=== PATIENT | female | born 1975 | race Caucasian/White ===

== ENCOUNTER 2019-01-18 19:37 | Emergency (ER) | payer MEDICAID ==
[~2019-01-18] VITALS: Ht 157.5 cm; Wt 68.2 kg
[~2019-01-18 19:37] MED LIST: NO MEDS
[2019-01-18 21:00] VITALS: BP 110/72
[2019-01-18] MEDS ORDERED: KETOROLAC TROMETHAMINE 30 MG/ML VIAL IM ONE (21:45)
== END 2019-01-18 21:57 | disposition home or self-care (01) ==
LOC: EMS 19:38
DX: S46.912A Strain of unspecified muscle, fascia and tendon at shoulder and upper arm level, left arm, initial encounter (principal); M54.10 Radiculopathy, site unspecified; F41.9 Anxiety disorder, unspecified; X50.9XXA Other and unspecified overexertion or strenuous movements or postures, initial encounter; Y93.89 Activity, other specified; Y92.89 Other specified places as the place of occurrence of the external cause; Y99.0 Civilian activity done for income or pay
CPT/HCPCS: 73030; 96372; 99283; J1885

== ENCOUNTER 2021-04-06 15:50 | Emergency (ER) | payer MEDICAID ==
[~2021-04-06] VITALS: Ht 154.9 cm; Wt 72.7 kg
[2021-04-06] MEDS ORDERED: ONDANSETRON HCL 4 MG/2 ML VIAL IVP ONE (19:00)
[2021-04-06] MEDS ORDERED: SODIUM CHLORIDE 0.9% 1,000 ML IV ONE (19:00)
[2021-04-06] MEDS ORDERED: FAMOTIDINE 10 MG/ML 2 ML VIAL IVP ONE (19:00)
[2021-04-06] MEDS ORDERED: KETOROLAC TROMETHAMINE 30 MG/ML VIAL IVP ONE (19:00)
[2021-04-06] MEDS ORDERED: MAG HYDROX/AL HYDROX/SIMETH 30 ML SUSP UDCUP PO ONE (19:00)
[2021-04-06] MEDS ORDERED: ACETAMINOPHEN 500 MG TABLET PO ONE (19:00)
[2021-04-06 19:23] LABS: BASOPHILS % (AUTO) 0.9 % (0.0-2.0); EOSINOPHILS % (AUTO) 0.2 % (1.0-6.0); HEMOGLOBIN 15.3 g/dL (12.0-16.0); LYMPHOCYTES # (AUTO) 1.1 K/uL (1.0-4.8); LYMPHOCYTES % (AUTO) 24.6 % (22.0-44.0); MEAN CORPUSCULAR HEMOGLOBIN 34.1 pg (26.0-34.0); MEAN CORPUSCULAR HGB CONC 34.8 G/dL (31.0-37.0); MEAN CORPUSCULAR VOLUME 98 fL (80-100); MONOCYTES # (AUTO) 0.3 K/uL (0.1-1.0); NEUTROPHILS # (AUTO) 3.1 K/uL (1.8-7.7); NEUTROPHILS % (AUTO) 67.3 % (40.0-70.0); PLATELET COUNT (AUTO) 174 K/uL (150-450); RED BLOOD CELL COUNT(AUTO) 4.49 MIL/uL (4.00-5.20); RED CELL DISTRIBUTION WIDTH 12.5 % (11.5-14.5)
[2021-04-06 19:42] LABS: ANION GAP 10 mmol/L (8-16); CALCIUM, TOTAL 9.1 mg/dL (8.8-10.5); CARBON DIOXIDE 28 mmol/L (22-29); CHLORIDE 100 mmol/L (98-107); CREATININE 0.84 mg/dL (0.60-1.30); GLOMERULAR FILTR. RATE CALC > 60 mL/min (>60); GLUCOSE,RANDOM 93 mg/dL (70-110); POTASSIUM 3.7 mmol/L (3.5-5.1); SODIUM SERUM 138 mmol/L (136-145); UREA NITROGEN, BLOOD 11 mg/dL (7-18)
[2021-04-06 19:48] LABS: LACTIC ACID 0.6 mmol/L (0.4-2.0)
[2021-04-06 19:58] LABS: B-TYPE NATRIURETIC PEPTIDE < 0 pg/mL (0-100)
[2021-04-06 20:07] LABS: ALANINE AMINOTRANSFERASE 28 U/L (12-78); ALKALINE PHOSPHATASE 78 U/L (46-116); ASPARTATE AMINOTRANSFERASE 25 U/L (15-37); BILIRUBIN,TOTAL 0.3 mg/dL (0.1-1.0); CREATINE KINASE, TOTAL ONLY 93 U/L (26-192); HCG,QUANTITATIVE 1 mIU/mL (0-6); LIPASE 128 U/L (73-393); TOTAL PROTEIN, SERUM 9.4 g/dL (6.4-8.2)
[2021-04-06 20:26] LABS: COVID AG,FIA SOURCE NASOPHARYNGEAL
[2021-04-06 20:54] LABS: INFLUENZA TYPE A NEGATIVE FOR TYPE A (NEGATIVE); INFLUENZA TYPE B NEGATIVE FOR TYPE B (NEGATIVE)
[2021-04-06 22:02] LABS: APPEARANCE,URINE CLEAR (CLEAR); GLUCOSE, URINE (UA) NEGATIVE (NEGATIVE); KETONES,URINE 40 mg/dL (NEGATIVE); LEUKOCYTE ESTERASE ,URINE NEGATIVE (NEGATIVE); NITRATE,URINE NEGATIVE (NEGATIVE); OCCULT BLOOD,URINE NEGATIVE (NEGATIVE); PROTEIN,URINE TRACE (NEGATIVE); UROBILINOGEN,URINE 0.2 mg/dL (<=1.0)
[2021-04-06 22:16] LABS: BILIRUBIN,URINE PRELIM. POSITIVE (NEGATIVE)
[2021-04-06] MEDS ORDERED: IOHEXOL 350 MG/ML 100 ML VIAL ONE (22:43)
[2021-04-06] MEDS ORDERED: SODIUM CHLORIDE 0.9% 100 ML ONE (22:43)
[2021-04-06] MEDS ORDERED: AZITHROMYCIN 500 MG TABLET PO ONE (22:45)
[2021-04-07] MEDS ORDERED: AZIT-84 PO (00:24)
[2021-04-07 01:30] VITALS: BP 117/69
[2021-04-08] MEDS ORDERED: ONDA-104 PO (16:44)
== END 2021-04-07 03:53 | disposition home or self-care (01) ==
LOC: EMS 16:00
DX: U07.1 COVID-19 (principal); J12.82 Pneumonia due to coronavirus disease 2019; F41.9 Anxiety disorder, unspecified
CPT/HCPCS: 36415; 71045; 74177; 80053; 81003; 82550; 83605; 83690; 83880; 84484; 84702; 85025; 87040; 87426; 87804; 93005; 96360; 99285; J1885; J2405; J3490; J7030; J7050; Q9967; U0003

== ENCOUNTER 2021-04-08 11:17 | Emergency (ER) | payer MEDICAID ==
[~2021-04-08] VITALS: Ht 154.9 cm; Wt 70.5 kg
[~2021-04-08 11:17] MED LIST changes: +AZIT-84 PO; -NO MEDS
[2021-04-08 12:11] VITALS: BP 108/74
[2021-04-08 14:57] LABS: BASOPHILS % (AUTO) 0.4 % (0.0-2.0); EOSINOPHILS % (AUTO) 0.5 % (1.0-6.0); HEMATOCRIT 41.6 % (36-46); HEMOGLOBIN 14.4 g/dL (12.0-16.0); LYMPHOCYTES # (AUTO) 1.1 K/uL (1.0-4.8); LYMPHOCYTES % (AUTO) 17.6 % (22.0-44.0); MEAN CORPUSCULAR HEMOGLOBIN 33.9 pg (26.0-34.0); MEAN CORPUSCULAR HGB CONC 34.6 G/dL (31.0-37.0); MEAN CORPUSCULAR VOLUME 98 fL (80-100); MONOCYTES # (AUTO) 0.3 K/uL (0.1-1.0); MONOCYTES % (AUTO) 5.6 % (2.0-9.0); NEUTROPHILS # (AUTO) 4.7 K/uL (1.8-7.7); NEUTROPHILS % (AUTO) 75.9 % (40.0-70.0); PLATELET COUNT (AUTO) 176 K/uL (150-450); RED BLOOD CELL COUNT(AUTO) 4.24 MIL/uL (4.00-5.20); RED CELL DISTRIBUTION WIDTH 12.4 % (11.5-14.5)
[2021-04-08 15:15] LABS: ANION GAP 12 mmol/L (8-16); CALCIUM, TOTAL 8.6 mg/dL (8.8-10.5); CARBON DIOXIDE 27 mmol/L (22-29); CHLORIDE 103 mmol/L (98-107); CREATININE 0.73 mg/dL (0.60-1.30); GLOMERULAR FILTR. RATE CALC > 60 mL/min (>60); GLUCOSE,RANDOM 85 mg/dL (70-110); POTASSIUM 3.9 mmol/L (3.5-5.1); SODIUM SERUM 142 mmol/L (136-145); UREA NITROGEN, BLOOD 10 mg/dL (7-18)
[2021-04-08 15:28] LABS: ALANINE AMINOTRANSFERASE 40 U/L (12-78); ALKALINE PHOSPHATASE 75 U/L (46-116); ASPARTATE AMINOTRANSFERASE 32 U/L (15-37); BILIRUBIN,TOTAL 0.3 mg/dL (0.1-1.0); HCG,QUANTITATIVE < 1 mIU/mL (0-6); TOTAL PROTEIN, SERUM 8.5 g/dL (6.4-8.2)
[2021-04-08 15:51] LABS: ALBUMIN 3.9 g/dL (3.4-5.0); LIPASE 111 U/L (73-393)
[2021-04-08] MEDS ORDERED: ONDA-104 PO (16:44)
== END 2021-04-08 18:25 | disposition home or self-care (01) ==
LOC: EMS 11:17
DX: R19.7 Diarrhea, unspecified (principal); R10.84 Generalized abdominal pain; J02.9 Acute pharyngitis, unspecified; R05.9 Cough, unspecified; Z20.822 Contact with and (suspected) exposure to COVID-19
CPT/HCPCS: 80053; 83690; 84702; 85025; 99283

== ENCOUNTER 2024-04-04 10:08 | Emergency (ER) | payer MEDICAID ==
[~2024-04-04] VITALS: Ht 157.5 cm; Wt 77.0 kg
[~2024-04-04 10:08] MED LIST changes: +AZIT-164 PO; -AZIT-84 PO; +ONDA-104 PO
[2024-04-04 10:24] VITALS: TEMP 98.4
[2024-04-04] MEDS: BACLOFEN 10 MG TABLET PO ONE (12:25)
[2024-04-04] MEDS: LIDOCAINE 5% TRANSDERMAL PATCH TD ONE (12:26)
[2024-04-04] MEDS ORDERED: BACL10TA PO (12:29)
[2024-04-04 13:13] VITALS: BP 131/85; PULSE 76; RESP 19; O2SAT 97
== END 2024-04-04 13:15 | disposition home or self-care (01) ==
LOC: EMS 10:08
DX: M25.512 Pain in left shoulder (principal); Z98.51 Tubal ligation status
CPT/HCPCS: 99283

== ENCOUNTER 2024-07-25 13:27 | Emergency (ER) | payer MEDICAID, OTHER ==
[~2024-07-25] VITALS: Ht 160 cm; Wt 74.0 kg
[~2024-07-25 13:27] MED LIST changes: +BACL10TA PO
[2024-07-25 13:46] VITALS: TEMP 97.5
[2024-07-25 14:44] VITALS: BP 126/80; PULSE 83; RESP 14; O2SAT 99
[2024-07-25] MEDS ORDERED: CLOB15CR41 TP (15:01)
[2024-07-25] MEDS ORDERED: CETI10TA58 PO (15:01)
[2024-07-25] MEDS: ONDANSETRON 4 MG TABLET PO ONE (15:13)
== END 2024-07-25 15:48 | disposition home or self-care (01) ==
LOC: EMS 13:27
DX: T65.891A Toxic effect of other specified substances, accidental (unintentional), initial encounter (principal); J68.8 Other respiratory conditions due to chemicals, gases, fumes and vapors; R11.0 Nausea; Z98.51 Tubal ligation status; Z79.899 Other long term (current) drug therapy; Y92.89 Other specified places as the place of occurrence of the external cause
CPT/HCPCS: 99283; Q0162